=== PATIENT | female | born 1955 | race Two or more races ===

== ENCOUNTER 2023-02-01 06:00 | Day surgery (SDC) | payer OTHER ==
[~2023-02-01 06:00] MED LIST: BUSPAR PO; CLONAZEPAM0.25 MG PO; HORIZANT600 MG PO; PEPCI PO; PROTONIX40 M1 PO; SINGULAIR10 MG PO; [UNRECOGNIZED DRUG - OTHER] PO
[2023-02-01] MEDS ORDERED: TRAM1TAB98 PO (12:55)
[2023-02-01] MEDS ORDERED: MACROBID 100 M100 MG PO (12:55)
== END 2023-02-01 17:15 | disposition home or self-care (01) ==
LOC: CIR.AMB 06:00
PROVIDERS: ATTEND Obstetrics & Gynecology Gynecology
DX: N81.11 Cystocele, midline (principal); N81.6 Rectocele; N81.5 Vaginal enterocele; Z20.822 Contact with and (suspected) exposure to COVID-19